=== PATIENT | male | born 1975 | race Caucasian/White ===

== ENCOUNTER 2019-12-18 17:20 | Emergency (ER) | payer BC ==
--- NOTE | 2019-12-18 18:15 | EDM.PDOC ---
ED HPI GENERAL MEDICAL PROBLEM - General Chief Complaint: Skin Complaint Stated Complaint: FACIAL SWELLING Time Seen by Provider: 12/18/19 17:55 Source of Information: Reports: Patient, RN Notes Reviewed History Limitations: Reports: No Limitations - History of Present Illness INITIAL COMMENTS - FREE TEXT/NARRATIVE: Patient is a 44-year-old male who presents to the ED for evaluation of an ingrown hair to his left cheek. He notes that he popped the lesion earlier this week, and was okay for a few days, but then it became reddened, and has been more swollen. He states is very tender to the touch. He has not had any fevers or chills, but he states that the swelling has made it hard to take his dentures out effectively. He is not complaining of any gum pain or any oral pain, no neck pain or throat pain. He is not had any shortness of breath cough or respiratory distress due to this. He is otherwise feeling well. Left Cheek Pain Score (Numeric/FACES): 4 - Related Data Allergies Allergy/AdvReac Type Severity Reaction Status Date / Time bee venom protein (honey bee) Allergy Anaphylactic Verified 12/18/19 18:03 Shock cat dander Allergy Anaphylactic Verified 12/18/19 18:03 Shock grass pollen Allergy Sneezing Verified 12/18/19 18:03 Home Meds: Home Meds Escitalopram Oxalate 10 mg PO DAILY 12/18/19 [History] cephALEXin [Cephalexin] 500 mg PO QID 10 Days #40 capsule 12/18/19 [Rx] lisinopriL [Lisinopril] 10 mg PO DAILY 12/18/19 [History] metFORMIN HCl [Metformin HCl ER] 500 mg PO BID 12/18/19 [History] ED ROS GENERAL - Review of Systems Review Of Systems: Comprehensive ROS is negative, except as noted in HPI. ED EXAM, SKIN/RASH Exam: See Below Exam Limited By: No Limitations General Appearance: Alert, WD/WN, No Apparent Distress Eye Exam: Bilateral Eye: EOMI, Normal Inspection, PERRL Ears: Normal External Exam Nose: Normal Inspection Throat/Mouth: Normal Inspection, Normal Lips, Normal Teeth, Normal Gums, Normal Oropharynx, Normal Voice, No Airway Compromise Head: Normocephalic, Facial Swelling (noted to left lower jaw line) Respiratory/Chest: No Respiratory Distress, Lungs Clear, Normal Breath Sounds, No Accessory Muscle Use, Chest Non-Tender Cardiovascular: Normal Peripheral Pulses, Regular Rate, Rhythm, No Murmur Peripheral Pulses: 2+: Radial (L), Radial (R), Femoral (L) Extremities: Normal Inspection, Normal Capillary Refill Neurological: Alert, Oriented, Normal Cognition, No Motor/Sensory Deficits Psychiatric: Normal Affect, Normal Mood Skin: Warm, Dry, Intact, No Rash, Erythema (roughly grape sized lesion to left lower jaw, this does have a scab on the outer facial skin, the area is tender to the touch and has the appearance of abscess.) Course - Vital Signs Last Recorded V/S: Last Vital Signs Temp 97.1 F 12/18/19 17:53 Pulse 102 H 12/18/19 17:53 Resp 16 12/18/19 17:53 BP 152/109 H 12/18/19 17:53 Pulse Ox 96 12/18/19 17:53 - Re-Assessments/Exams Free Text/Narrative Re-Assessment/Exam: 12/18/19 18:14 Patient presents to the ED for the evaluation of his facial abscess. He will be started on Keflex 4 times a day for the next 10 days. I will have him do hot packs to the area to try to bring the infection to the surface. He will need to take ibuprofen as needed for pain relief. Departure - Departure Time of Disposition: 18:14 Disposition: Home, Self-Care 01 Condition: Good Clinical Impression: Cellulitis and abscess of face - Discharge Information *PRESCRIPTION DRUG MONITORING PROGRAM REVIEWED*: No *COPY OF PRESCRIPTION DRUG MONITORING REPORT IN PATIENT BEATRIZ: No Instructions: Skin Abscess, [id number] Referrals: Marlena Streeter PA-C [Primary Care Provider] - Additional Instructions: You were evaluated in the ER today regarding a suspected skin infection. It does appear that you have an abscess. You were given an antibiotic, cephalexin 1 tablet 4 times a day x10 days please take as prescribed until the course is done or told otherwise by different provider. Please note that this antibiotic will take at least 48 hours to start working appropriately. You may try to use heat/ice packs to the area to help reduce pain/swelling. You may take 500 mg Tylenol or 600 mg ibuprofen every 6 hours as needed for further pain relief. Do not exceed 4000 mg Tylenol or 3200 mg ibuprofen in a 24-hour time span. Please return to the ER at any time if your symptoms change or worsen. Sepsis Event Note (ED) - Evaluation Sepsis Screening Result: No Definite Risk - Focused Exam Vital Signs: Vital Signs Temp Pulse Resp BP Pulse Ox 12/18/19 17:53 97.1 F 102 H 16 152/109 H 96
== END 2019-12-18 18:56 | disposition home or self-care (01) ==
LOC: JD.ED 17:20
DX: L03.211 Cellulitis of face (principal); L02.01 Cutaneous abscess of face; Z91.030 Bee allergy status; Z91.048 Other nonmedicinal substance allergy status; Z79.899 Other long term (current) drug therapy
CPT/HCPCS: 99282; 99283

== ENCOUNTER 2020-10-11 22:08 | Emergency (ER) | payer BC ==
[2020-10-11] MEDS ORDERED: Ketorolac 60 MG/2 ML SDV IM ONE (22:50)
--- NOTE | 2020-10-11 23:04 | EDM.PDOC ---
<Attila العراقي M - Last Filed: 10/11/20 23:31> ED HPI GENERAL MEDICAL PROBLEM - General Chief Complaint: Upper Extremity Injury/Pain Stated Complaint: RIGHT SHOULDER PAIN Time Seen by Provider: 10/11/20 22:28 Source of Information: Reports: Patient History Limitations: Reports: No Limitations - History of Present Illness INITIAL COMMENTS - FREE TEXT/NARRATIVE: 44-year-old male presents the emergency department today with complaints of right shoulder pain that started about 2 weeks ago. Per the patient's report he was moving and was lifting several heavy objects. He states that the pain started that evening however it was not that bad however it has become worse over the past couple of weeks and tonight it is unbearable. He denies any previous injury to the right shoulder area. He states he has tried ice and heat to the area however he has not taken any Tylenol ibuprofen or Aleve. He states that he has a history of drug addiction and does not like to take any medications. - Related Data Allergies Allergy/AdvReac Type Severity Reaction Status Date / Time bee venom protein (honey bee) Allergy Severe Anaphylactic Verified 10/11/20 22:22 Shock grass pollen Allergy Severe Sneezing Verified 10/11/20 22:22 cat dander Allergy Anaphylactic Verified 10/11/20 22:22 Shock Home Meds: Home Meds Escitalopram Oxalate 10 mg PO DAILY 12/18/19 [History] lisinopriL [Lisinopril] 10 mg PO DAILY 12/18/19 [History] metFORMIN HCl [Metformin HCl ER] 1,000 mg PO BID 12/18/19 [History] Past Medical History HEENT History: Reports: None Cardiovascular History: Reports: High Cholesterol, Hypertension Gastrointestinal History: Reports: None Genitourinary History: Reports: None Musculoskeletal History: Reports: Amputation 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 Neurological History: Reports: None Psychiatric History: Reports: Anxiety, Depression Other Psychiatric History: Substance abuse hx, pt in recovery "16 years" Endocrine/Metabolic History: Reports: Diabetes, Type II Hematologic History: Reports: None Dermatologic History: Reports: None - Past Surgical History Musculoskeletal Surgical History: Reports: Other (See Below) Other Musculoskeletal Surgeries/Procedures:: Neck surgery fusion C5, 6, 7 Social & Family History - Family History Family Medical History: No Pertinent Family History - Tobacco Use Tobacco Use Status *Q: Current Every Day Tobacco User Years of Tobacco use: 28 Packs/Tins Daily: 1 - Caffeine Use Caffeine Use: Reports: Coffee, Soda - Recreational Drug Use Recreational Drug Use: Yes Drug Use in Last 12 Months: No Review of Systems - Review of Systems Review Of Systems: Comprehensive ROS is negative, except as noted in HPI. ED EXAM, GENERAL - Physical Exam Exam: See Below Exam Limited By: No Limitations General Appearance: Alert, WD/WN, No Apparent Distress Ears: Normal External Exam, Hearing Grossly Normal Nose: Normal Inspection Throat/Mouth: Normal Inspection, Normal Lips, Normal Voice, No Airway Compromise Head: Atraumatic Neck: Normal Inspection, Supple, Non-Tender Respiratory/Chest: No Respiratory Distress, No Accessory Muscle Use Cardiovascular: Normal Peripheral Pulses, Regular Rate, Rhythm Peripheral Pulses: 2+: Radial (L), Radial (R) GI/Abdominal: No Distention (Male) Exam: Deferred Rectal (Males) Exam: Deferred Back Exam: Normal Inspection, Full Range of Motion Extremities: Normal Inspection, Normal Range of Motion, Normal Capillary Refill. No: Non-Tender (Tenderness noted to the suprascapular area near the acromion ) Neurological: Alert, Oriented, Normal Cognition Psychiatric: Normal Affect, Normal Mood Skin Exam: Warm, Dry, Intact, Normal Color, No Rash Lymphatic: No Adenopathy Course - Vital Signs Text/Narrative:: Upon assessment, the patient is able to raise his right arm laterally over his head however he states it is significantly painful and pain is severe when lowering his right arm down to his side. Patient pinpoints that the pain in the suprascapular area and notes that pain radiates down the lateral portion of his right arm and he has numbness in his third and fourth fingers on the dorsal aspect of his right hand. He is able to raise his right arm anteriorly in front of his body without any problem. He is not however able to put his right hand behind his back due to the pain in the suprascapular area. I have ordered an x- ray of the right shoulder and Toradol 60 mg IM x1 dose. - Re-Assessments/Exams Free Text/Narrative Re-Assessment/Exam: 10/11/20 23:28 Xray of right shoulder is normal as reviewed by myself and Dr. Anaya. 10/11/20 23:31 I have handed over care to Dr. Anaya. Departure - Departure Disposition: Home, Self-Care 01 Clinical Impression: Right shoulder pain - Discharge Information Referrals: Marlena Streeter PA-C [Primary Care Provider] - Luis Armando Dupont MD [Physician] - Forms: ED Department Discharge Additional Instructions: You were seen in the emergency room for 2 weeks of right shoulder pain that developed after lifting heavy items. Work-up in the ER included x-rays of your right shoulder, which were unremarkable. No broken bones or dislocations were seen. Based on your history, physical exam, and ER x-rays, your pain is most likely due to inflammation or injury to one or more tendons in your shoulder. We recommend you take [id number] ibuprofen, 3 to 4 tablets (600-800 mg) up to every 8 hours, with food, as needed for discomfort. You have been placed into a shoulder sling, however, we recommend that you perform passive range of motion of your shoulder several times a day, including arm swings and "wall crawl", as demonstrated. Please follow-up with the Orthopedic Surgeon Dr. Luis Armando Dupont at the next available appointment. If any other problems, please do not hesitate to return to the ER. <Travis Anaya - Last Filed: 10/12/20 00:46> ED HPI GENERAL MEDICAL PROBLEM Right Anterior Shoulder Pain Score (Numeric/FACES): 8 Course - Vital Signs Last Recorded V/S: Last Vital Signs Temp 35.8 C L 10/11/20 22:28 Pulse 73 10/11/20 22:28 Resp 18 10/11/20 22:28 BP 160/106 H 10/11/20 22:28 Pulse Ox 97 10/11/20 22:28 - Orders/Labs/Meds Orders: Active Orders 24 hr Category Date Time Status Shoulder Comp Rt [CR] Stat Exams 10/11/20 22:49 Taken Meds: Medications Discontinued Medications Generic Name Dose Route Start Last Admin Trade Name Valentina PRN Reason Stop Dose Admin Ketorolac Tromethamine 60 mg 10/11/20 22:50 10/11/20 23:30 Ketorolac 60 Mg/2 Ml Sdv IM 10/11/20 22:51 60 mg ONETIME ONE Administration - Re-Assessments/Exams Free Text/Narrative Re-Assessment/Exam: 10/12/20 00:40 Case received from Attila العراقي NP. I examined the patient. I agree with her history and physical examination as documented. The patient stated that the Toradol didn't do anything, although I explained that Toradol does not work instantly, and it may take a while for him to get some relief. His exam is not consistent with deltoid bursitis, and is more consistent with a rotator cuff tendinitis. Going forward I will order an arm sling for him to wear, but I would like him to perform passive range of motion several times a day, and I demonstrated how that can be done. I will refer him to Dr. Dupont for further evaluation; Dr. Dupont may wish to inject a steroid in the shoulder, which would likely give him significant relief. Departure - Departure Time of Disposition: 00:43 Condition: Good - Discharge Information *PRESCRIPTION DRUG MONITORING PROGRAM REVIEWED*: Not Applicable *COPY OF PRESCRIPTION DRUG MONITORING REPORT IN PATIENT BEATRIZ: Not Applicable Sepsis Event Note (ED) - Focused Exam Vital Signs: Vital Signs Temp Pulse Resp BP Pulse Ox 10/11/20 22:28 35.8 C L 73 18 160/106 H 97
--- NOTE | 2020-10-12 09:50 | CR ---
Right shoulder: 3 views of the right shoulder were obtained. Comparison: No prior shoulder study is available. Acromioclavicular joint and glenohumeral joints appear within normal limits. Prior cervical spine surgery is noted. No acute fracture, dislocation or other bony abnormality is seen. No discrete soft tissue calcifications are seen. Impression: 1. Prior cervical spine surgery. 2. Nothing acute is appreciated on right shoulder study. Diagnostic code #2
== END 2020-10-12 01:15 | disposition home or self-care (01) ==
LOC: JD.ED 22:08
DX: M25.511 Pain in right shoulder (principal); I10 Essential (primary) hypertension; E11.9 Type 2 diabetes mellitus without complications; Z72.0 Tobacco use; Z91.030 Bee allergy status; Z91.048 Other nonmedicinal substance allergy status; Z79.84 Long term (current) use of oral hypoglycemic drugs; Z79.899 Other long term (current) drug therapy
CPT/HCPCS: 73030-26-RT; 73030-RT; 96372; 99283; 99283-25; J1885

== ENCOUNTER 2021-08-05 06:08 | Emergency (ER) | payer BC | END 2021-08-05 07:50 | disposition home or self-care (01) | LOC: JD.ED 06:08 | DX: S63.92XA Sprain of unspecified part of left wrist and hand, initial encounter (principal); E78.00 Pure hypercholesterolemia, unspecified; I10 Essential (primary) hypertension; E11.9 Type 2 diabetes mellitus without complications; F17.210 Nicotine dependence, cigarettes, uncomplicated; Z91.030 Bee allergy status; Z91.048 Other nonmedicinal substance allergy status; W23.0XXA Caught, crushed, jammed, or pinched between moving objects, initial encounter | CPT/HCPCS: 73130-26-LT; 73130-LT; 99283; 99283-25 ==